=== PATIENT | female | born 1990 | race Caucasian/White ===

== ENCOUNTER → 2025-03-03 11:55 | Outpatient (CLI) | payer OTHER, SELFPAY ==
[2025-03-03 13:47] LABS: Pregnancy Test Serum,Qual Negative (Negative)
== END ==
PROVIDERS: Referring Provider Chiropractor; Visit Provider Chiropractor
DX: N93.9 Abnormal uterine and vaginal bleeding, unspecified (principal)
CPT/HCPCS: 36415; 84703